=== PATIENT | female | born 1980 ===

== ENCOUNTER → 2019-04-05 | Outpatient (REF) | payer BC ==
[2019-04-05 20:17] LABS: PLATELET COUNT, AUTOMATED 371 K/uL (150-450)
== END ==
PROVIDERS: ATTEND Nurse Practitioner Family
DX: K59.1 Functional diarrhea (principal)
CPT/HCPCS: 82040; 82247; 82310; 82374; 82435; 82565; 82947; 84075; 84132; 84155; 84295; 84450; 84460; 84520; 85025